=== PATIENT | female | born 1990 | race Caucasian/White ===

== ENCOUNTER → 2018-03-13 | Outpatient (CLI) | payer OTHER | LOC: FIMAGING 13:12 | PROVIDERS: ATTEND Advanced Practice Midwife | DX: Z34.82 Encounter for supervision of other normal pregnancy, second trimester (principal); G93.0 Cerebral cysts; Z3A.19 19 weeks gestation of pregnancy ==

== ENCOUNTER 2018-07-24 08:03 | Day surgery (SDC) | payer OTHER ==
--- NOTE | 2018-07-20 15:51 | GHP ---
[f rep st] PREOP HISTORY AND PHYSICAL DATE OF ADMISSION: 07/24/2018 PLANNED PROCEDURE: External cephalic version. INDICATIONS: Patient is a 28-year-old 1, para 0, who will be _ weeks gestation on 07/24/2018. Her estimated date of confinement is 2018 by last menstrual period consistent with a first trimester ultrasound. Patient has been receiving care with the [facility]. She has been recently found to be in a breech presentation and presented on 2018, for consultation for options. Patient was scanned and her fluid appeared to be adequate with an amniotic fluid index of 15, and the baby was in the transverse presentation with spine down. Management options were reviewed with the patient, including continued alternative therapies with chiropractic and moxibustion, as well as external cephalic version versus proceeding with a primary low transverse section at 39 weeks or if in labor. All options , risks, and benefits were reviewed extensively with the patient. Patient is electing to proceed with an external cephalic version, which will be done on . Patient was instructed to arrive with nothing to eat after midnight and some clear liquids until 2 hours before the procedure. PAST MEDICAL HISTORY: Patient has a history of possible migraine headaches. Patient has a history of anxiety and depression, mood has been stable now. MEDICATIONS: vitamins, fish oil, DHEA, calcium. SURGICAL HISTORY: None. ALLERGIES: No known drug allergies. SOCIAL HISTORY: Patient is . She denies tobacco, alcohol, or drug use. FAMILY MEDICAL HISTORY: Noncontributory. MUNICIPAL ENGINEER HISTORY: She is a 1, para 0. Current has been uncomplicated. She declined genetic testing, testing. She did have her anatomy ultrasound with the Maternal Medicine specialist. Growth was normal. Placenta is anterior without previa. There was a marginal cord insertion and bilateral small choroid plexus cyst. Remainder of anatomy was unremarkable. Estimated weight was 21st percentile. LABS: Blood type B positive, antibody screen negative. Rubella immune. GBS negative. HBsAg negative. HIV negative. Her 50 g glucose was 65. She declined genetic testing, testing. ASSESSMENT AND PLAN: A 28-year-old, 1, para 0 at weeks gestation whose baby is in the transverse presentation. She will undergo an external cephalic version on Tuesday. Labor precautions and kick counts were reviewed with the patient. The patient will sign consent day of surgery. /[id number]/MODL MTDD
[2018-07-24] MEDS ORDERED: TERBUTALINE SULFATE 1 MG/ML VIAL IV ONE (08:07)
[2018-07-24] MEDS ORDERED: OLIVE OIL 118 ML BTL MISC ONE (08:07)
--- NOTE | 2018-07-24 08:13 | SOAPPROG ---
SOAP Progress Note Assessment/Plan: Assessment: 28 year old with full term for version Plan: Stand by anesthesia. Spinal verses GA as necessary if CS needed 07/24/18 08:14 Subjective: No complaints. Here for version Objective: NPO to solids > 8 hours. NPO to clears 1 hour. Class 1 airway. Lungs CTA, Heart RRR - Time Spent With Patient Time Spent With Patient: 10 minutes - Pending Discharge Pending Discharge Within 24 Hours: Yes Pending Discharge Date: 07/25/18 Pending Discharge Time: 11:00 Physical Exam - Physical Exam General Appearance: alert Respiratory: lungs clear Cardiac/Chest: regular rate, rhythm Neuro/Psych: alert
[2018-07-24 08:16] LABS: PLATELET COUNT 184 10^3/uL (150-400)
--- NOTE | 2018-07-24 08:19 | PDANEPAE ---
ANE History of Present Illness 28 year old for version ANE Past Medical History Past Medical History: Healthy ANE Review of Systems Review of systems is: negative Review of Systems: ANE Patient History - Allergies Allergies/Adverse Reactions: No Known Allergies Allergy (Unverified 07/24/18 08:05) - Home Medications Home medications: home medication list seen and reviewed - NPO status NPO Since - Liquids (Time): 01:00 - Anes Hx Anes Hx: no prior problems - Smoking Hx Smoking Status: Never smoked ANE Labs/Vital Signs - Labs Result Diagrams: 07/24/18 08:07 - Vital Signs Height: 170.18 cm Weight: 88.451 kg ANE Physical Exam - Airway Neck exam: FROM Mallampati Score: Class 1 Mouth exam: normal dental/mouth exam - Pulmonary Pulmonary: no respiratory distress, clear to auscultation - Cardiovascular Cardiovascular: regular rate and rhythym - ASA Status ASA Status: II ANE Anesthesia Plan Anesthesia Plan: general endotracheal anesthesia, spinal (Standby anesthresia as indicated at time of need)
[2018-07-24 08:53] VITALS: BP 114/73
--- NOTE | 2018-07-24 11:55 | GOP ---
[f rep st] OPERATIVE REPORT DATE OF OPERATION: 07/24/2018 SURGEON: Hannah Benavides DO PREOPERATIVE DIAGNOSIS: POSTOPERATIVE DIAGNOSIS: PROCEDURE PERFORMED: External cephalic version at 38 and 1/7 weeks' gestation. FINDINGS: DESCRIPTION OF PROCEDURE: Patient is a 28-year-old, 1, para 0, who is 38 and 1/7 weeks' gest ation. She has been receiving care at the [facility]. She presented for consu ltation last week for an external cephalic version because of baby to be in the transverse presentati on. Risks and benefits were reviewed with the patient and patient was brought in. She was n.p.o., e xcept for fluids for 2 hours ago. Baby was scanned and found to be in the transverse presentation. heart tracing was category 1 and there is adequate fluid. An IV was started. Patient was give n intravenous terbutaline and status remained reassuring. With Vilma Stoll, the craniologist was in a ssistance, we did a forward roll and the baby was then in the cephalic presentation. status re mained reassuring. She had a reactive nonstress test following the procedure. We did an ultrasound afterwards to check fluid. BARNEY was 14. remained in the vertex presentation. Labor precautio ns and kick counts were reviewed with the patient and patient was discharged to home. /[id number]/MODL
== END 2018-07-24 11:07 | disposition home or self-care (01) ==
LOC: FOBOP 08:03
PROVIDERS: ATTEND Obstetrics & Gynecology
PROC: 10S0XZZ Reposition Products of Conception, External Approach (ICD-10-PCS; principal; 2018-07-24)
DX: O32.1XX0 Maternal care for breech presentation, not applicable or unspecified (principal); Z3A.38 38 weeks gestation of pregnancy
CPT/HCPCS: J3105

== ENCOUNTER 2018-08-07 23:48 | Inpatient (IN) | payer OTHER ==
[2018-08-08] MEDS ORDERED: LIDOCAINE 1% 300 MG/30 ML SDV SC PRN (00:06)
[2018-08-08] MEDS ORDERED: AMMONIA AROMATIC 1 EACH AMP IH PRN (00:06)
[2018-08-08] MEDS ORDERED: EPSOM SALT 454 GM TP PRN (00:06)
[2018-08-08] MEDS ORDERED: OLIVE OIL 118 ML BTL MISC PRN (00:06)
[2018-08-08] MEDS ORDERED: LR 1,000 ML IV PRN (00:06)
[2018-08-08] MEDS ORDERED: TERBUTALINE SULFATE 1 MG/ML VIAL IV PRN (00:06)
[2018-08-08] MEDS ORDERED: OXYTOCIN/RINGERS LACTATE 1,000 ML IV PRN (00:06)
[2018-08-08] MEDS ORDERED: MISOPROSTOL 200 MCG TAB PO PRN (00:06)
[2018-08-08] MEDS ORDERED: IBUPROFEN 600 MG TAB PO PRN (00:06)
--- NOTE | 2018-08-08 00:07 | PDGENHP ---
History and Physical History and Physical: Care: [facility] HPI: Patient is a 28 yo with IUP@ weeks that presents to L&D with complaints of contractions since 0700, worse since 1400. She reports LOF @ 2044; denies any VB. She reports +FM. EDC: 08/06/18 which is based on LMP: 10/30/17 which is known and consistent with Ultrasound in first trimester. Her is complicated by: marginal cord insertion, DRIER Review of Systems: Constitutional: Denies any fever, chills, or fatigue HEENT: denies any visual changes, difficulty swallowing, hearing loss Cardiovascular: Denies any chest pain, palpitations, leg swelling Respiratory: denies any cough, wheezing, or shortness of breathe GI: Denies any nausea, vomiting, diarrhea, constipation : denies any dysuria, urgency, frequency, vaginal bleeding Musculoskeletal: denies any muscle or bone pain Skin: denies any rashes Neuro: denies any headache, seizures, lightheadedness, dizziness, or loss of consciousness Psychiatric: denies any depression, anxiety, or SI/HI thoughts HISTORY: Previous OB history: G1 Past medical history: noncontributory Past surgical history: oral surgery Social: Denies any alcohol, tobacco, or drug use. Partner- Larry Family history: Not relevant Medications: PNV, fish oil, Calcium, vitamin D Allergies (list reaction): NKDA LABS: Rh: A+ ABS: Neg Rubella: Immune HbsAg: NR HIV: NR VDRL: NR 1hr: 65 GC: Neg Chlamydia: Neg Pap: Normal GBS: negative PHYSICAL EXAM: Constitutional: WN, A&Ox3 HEENT: normocephalic atraumatic, supple Skin: Warm, dry, intact Heart: RRR, no murmur Chest: CTA-B Abdomen: Soft, nontender, gravid SVE:deferred on admission (/-1, per CNM at [facility]) Extremities: trace edema, negative homans sign Neuro: grossly normal Psych: normal affect assessment: FHT baseline 140 +accels, no decels, moderate variability Contractions: toco q 4-5 Assessment: * 28yo with IUP@ 40-2wks * early labor * GBS Negative * cat 1 FHR tracing Plan: * admit to L&D * MILES per pt request * anticipate Today's visit was approximately 30 min, of which >50% of visit 20 min, was spent face to face with pt on direct counseling/coordination of care.
[2018-08-08 00:35] LABS: PLATELET COUNT 216 10^3/uL (150-400)
[2018-08-08] MEDS ORDERED: AMMONIA AROMATIC 1 EACH AMP IH ONE (00:36)
[2018-08-08] MEDS ORDERED: LIDOCAINE 1% 300 MG/30 ML SDV ONE (00:36)
[2018-08-08] MEDS ORDERED: TERBUTALINE SULFATE 1 MG/ML VIAL ONE (00:36)
[2018-08-08] MEDS ORDERED: OLIVE OIL 118 ML BTL MISC ONE (00:36)
[2018-08-08] MEDS ORDERED: MISOPROSTOL 200 MCG TAB ONE (00:37)
[2018-08-08] MEDS ORDERED: OXYTOCIN 10 UNIT/ML VIAL ONE (00:37)
[2018-08-08] MEDS ORDERED: fentaNYL 2MCG/ML/BUP 0.1% RTU 100 ML BAG EP ONE (00:56)
[2018-08-08] MEDS ORDERED: PHENYLEPHRINE HCL 100 MCG/ML SYR ONE (01:34)
[2018-08-08] MEDS ORDERED: PHENYLEPHRINE HCL 100 MCG/ML SYR IVP PRN (01:40)
[2018-08-08] MEDS ORDERED: NALOXONE HCL 0.4 MG/ML INJ IVP PRN (01:40)
[2018-08-08] MEDS ORDERED: ONDANSETRON 4 MG/2 ML VIAL IVP PRN (01:40)
--- NOTE | 2018-08-08 01:48 | PREANESOB ---
Obstetric Pre-Anesthesia Info - General Info Proposed Procedure: vaginal delivery NPO Start Time: 22:00 : 1 Para: 0 LILIA: 08/06/18 - Info Status: Full Term Monitors: External FHR Pattern: Reassuring - Labor Status Cervical Dilation per last OB SVE: 5 Rupture of Membranes Date: 08/07/18 Rupture of Membranes Time: 20:45 Amniotic Fluid Color: Clear Indications for Labor Analgesia: Pain Control Labor Epidural: Proposed Anesthesia ROS: Pt reports back pain and GERD "just the usual" during . H/o situational depression, RUSSO 2/mo, joint swelling/inflammation Allergies/Adverse Reactions: Allergy/AdvReac Type Severity Reaction Status Date / Time No Known Allergies Allergy Verified 08/08/18 00:04 Home Medications: Medication Instructions Recorded Fish Oil 1,200 mg Softgel 07/24/18 07/24/18 Vitamin D3 07/24/18 Visit Medications: Generic Name Dose Route Start Last Admin Trade Name Freq PRN Reason Stop Dose Admin Ammonia (Aromatic Spirit) 1 each 08/08/18 00:06 Ammonia Aromatic IH 08/18/18 00:05 ONCE PRN Fainting Diphenhydramine HCl 25 - 50 mg 08/08/18 01:40 Benadryl Injection IVP 02/04/19 01:39 Q6HRS PRN Itching Lactated Ringer's 1,000 mls @ 0 mls/hr 08/08/18 00:06 Lr IV 08/09/18 00:05 PRN PRN SEE PROTOCOL CONDITIONS Protocol Per Protocol Oxytocin/Lactated Ringer's 1,000 mls @ 999 mls/hr 08/08/18 00:06 Pitocin 20 Units/Lr (Premix) IV PRN PRN Post bleeding Fentanyl/Bupivacaine HCl 100 mls @ 0 mls/hr 08/08/18 02:00 Fentanyl/Bupivacaine/Ns 2 Mcg/Ml 0.1% (Premix EP 08/18/18 01:59 CONT RENATA Protocol As Directed Lactated Ringer's 500 mls @ 0 mls/hr 08/08/18 02:00 Lr IV 02/04/19 01:59 CONT RENATA As Directed Ibuprofen 600 mg 08/08/18 00:06 Motrin PO ONCE PRN post , pain Lidocaine HCl 300 mg 08/08/18 00:06 Lidocaine Hcl 1% SC 02/04/19 00:05 ONCE PRN episiotomy Magnesium Sulfate 454 gm 08/08/18 00:06 Epsom Salt TP 02/04/19 00:05 Q1H PRN perineal discomfort Misoprostol 800 - 1,000 mcg 08/08/18 00:06 Cytotec PO 02/04/19 00:05 ONCE PRN Vaginal Atony/Bleeding Naloxone HCl 0.4 mg 08/08/18 01:40 Narcan IVP 02/04/19 01:39 PRN PRN Respiratory depression [place] Oil 118 ml 08/08/18 00:06 Sweet Oil MISC 02/04/19 00:05 ONCE PRN perineal massage Ondansetron HCl 4 mg 08/08/18 01:40 Zofran IVP 08/09/18 01:39 Q4HRS PRN Nausea/Vomiting, Can't Take PO Phenylephrine HCl 100 mcg 08/08/18 01:40 Neosynephrine IVP 02/04/19 01:39 .Q2M PRN Hypotension Terbutaline Sulfate 0.25 mg 08/08/18 00:06 Brethine IV 02/04/19 00:05 ONCE PRN Tachysystole Discontinued Medications Generic Name Dose Route Start Last Admin Trade Name Freq PRN Reason Stop Dose Admin Ammonia (Aromatic Spirit) Confirm 08/08/18 00:36 Ammonia Aromatic Administered 08/08/18 00:37 Dose 1 each IH .STK-MED ONE Fentanyl/Bupivacaine HCl Confirm 08/08/18 00:56 Fentanyl/Bupivacaine/Ns 2 Mcg/Ml 0.1% (Premix Administered 08/08/18 00:57 Dose 100 ml EP .STK-MED ONE Lidocaine HCl Confirm 08/08/18 00:36 Lidocaine Hcl 1% Administered 08/08/18 00:37 Dose 300 mg .ROUTE .STK-MED ONE Misoprostol Confirm 08/08/18 00:37 Cytotec Administered 08/08/18 00:38 Dose 1,000 mcg .ROUTE .STK-MED ONE [place] Oil Confirm 08/08/18 00:36 Sweet Oil Administered 08/08/18 00:37 Dose 118 ml MISC .STK-MED ONE Oxytocin Confirm 08/08/18 00:37 Pitocin Administered 08/08/18 00:38 Dose 40 unit .ROUTE .STK-MED ONE Phenylephrine HCl Confirm 08/08/18 01:34 Neosynephrine Administered 08/08/18 01:35 Dose 1,000 mcg .ROUTE .STK-MED ONE Terbutaline Sulfate Confirm 08/08/18 00:36 Brethine Administered 08/08/18 00:37 Dose 1 mg .ROUTE .STK-MED ONE - Anesthesia History Response to Local Anesthetics: Normal Anesthesia & Operative History: No Prior Problems (h/o wisdom teeth extraction) Family Anesthesia History: Negative - Vital Signs Latest Vital Signs (Nursing): See recreation instructor for VS - Focused Exam Mallampati Score: Class 2 Pulmonary: clear to auscultation Cardiovascular: regular rate and rhythym Labs: 08/08/18 00:08 Patient ABO/Rh A POSITIVE 08/08/18 00:08 - Plan Anesthetic Plan: MAMADOU Consent Signed and on Chart: Yes Urgent/Emergent Case: Melina lee completed preop but documented later for safe timely pt care
[2018-08-08] MEDS ORDERED: fentaNYL 2MCG/ML/BUP 0.1% RTU 100 ML EP SCH (02:00)
[2018-08-08] MEDS ORDERED: LR 500 ML IV SCH (02:00)
--- NOTE | 2018-08-08 02:36 | OBPROG ---
Labor Progress Note Assessment/Plan: Assessment: 28yo with IUP@ 40-2wks Early labor SROM @ 2045 GBS Negative Cat 1FHR Tracing MILES in place Plan: cont position changes q 30min pitocin augmentation if MVU's <180 reassess @ 0600/PRN Subjective/Intrapartum Course: 08/08/18 02:34 Pt comfortable with MILES at this time. pt denies any pain. Agreeable to IUPC placement and pitocin augmentation PRN. FOB at BS and supportive. Objective: 08/08/18 00:08 Patient ABO/Rh A POSITIVE 08/08/18 00:08 - SVE Dilation (cm): 4 Effacement (%): 75 Station: -2 Membranes: SROM Amniotic Fluid Color: Clear - Contraction Pattern Assessment Current Contraction Pattern: Regular - Procedures Non-surgical Procedures: IUPC Oxytocin Orders Assessment - Pre-Induction/Augmentation Assessment Presentation: Vertex Gestational Age Determined By: Ultrasound, Last Menstral Period Membrane Status: Ruptured Current Contraction Pattern: Regular - Wood's Score Dilation: 3-4cm Effacement: 60-70 Station: -2 Cervix: Soft Cervix Position: Anterior Wood Score Total: 9 ICD10 Worksheet Patient Problems: Problems Problem Status Onset Indication for care in labor or delivery Acute - ICD10 Problem Qualifiers (1) Indication for care in labor or delivery
[2018-08-08] MEDS ORDERED: HYDROCORTISONE 0.5% CREAM TP PRN (06:30)
[2018-08-08] MEDS ORDERED: SIMETHICONE 80 MG TAB CHEW PO PRN (06:30)
--- NOTE | 2018-08-08 06:34 | OBDEL ---
Info Type: Vaginal Presentation at Delivery: Vertex L&D Analgesia/Anesthesia Type: Epidural GBS+: No Intrapartum Medications: Discontinued Medications Generic Name Dose Route Start Last Admin Trade Name yTrese PRN Reason Stop Dose Admin Ibuprofen 600 mg 08/08/18 00:06 08/08/18 06:23 Motrin PO 600 mg ONCE PRN Administration post , pain - Hospital Course Intrapartum: 08/08/18 02:34 Pt comfortable with MILES at this time. pt denies any pain. Agreeable to IUPC placement and pitocin augmentation PRN. FOB at BS and supportive. Indications for Delivery: Spontaneous Labor, SROM Vaginal Delivery - Delivery Provider Delivery Physician/CNM: Mary Cooper - Labor and Delivery Onset of Contractions Date: 08/07/18 Onset of Contractions Time: 21:30 Onset of Contractions Type: Spontaneous Rupture of Membranes Date: 08/07/18 Rupture of Membranes Time: 20:45 Rupture of Membranes Type: Spontaneous Amniotic Fluid Color: Clear Dilation Complete Date: 08/08/18 Dilation Complete Time: 04:18 Placenta Delivery Date: 08/08/18 Placenta Delivery Time: 06:07 Total Hours of Labor: 8 Non-surgical Procedures: IUPC Vaginal Sponge Count Correct: Yes Vaginal Needle Count Correct: Yes Vaginal Sweep Performed: Yes EBL: 200 Delivery Events: Nuchal Cord Delivery Comment: baby delivered without difficulty. Spontaneous cry, baby to mothers chest. [place] Data LILIA: 08/06/18 Gestational Age: 40 week(s) and 2 day(s) Pete Delivery Date: 08/08/18 Delivery Time: 06:01 Sex of Infant: Male Score (1 Min): 8 Score (5 Min): 9 ICD10 Worksheet Patient Problems: Problems Problem Status Onset Indication for care in labor or delivery Acute - ICD10 Problem Qualifiers (1) Indication for care in labor or delivery
[2018-08-08] MEDS: IBUPROFEN 600 MG TAB PO PRN ×2 (14:02→20:02)
[2018-08-08] MEDS: ACETAMINOPHEN 325 MG TAB PO PRN ×2 (14:03→20:03)
[2018-08-08] MEDS: DOCUSATE SODIUM 100 MG CAP PO PRN ×2 (14:03→20:03)
--- NOTE | 2018-08-08 17:56 | POSTANESTH ---
Post Anesthetic Evaluation Cardiovascular Status: Normal, Stable, Similar to Pre-Op Cond Respiratory Status: Normal, Stable, Similar to Pre-op Cond. Level of Consciousness/Mental Status: Can Participate in Eval, Alert and Oriented Pain Control: Adequate, Prn Tx Ordered Nausea/Vomiting Control: Adequate, Prn Tx Ordered Complications Possibly Related to Anesthesia: None Noted Notes: Pt seen and examined. Back site c/d/i, no e/e/e. Rates pain control as excellent. Able to ambulate. MILES has resolved completely, no apparent adverse effects.
[2018-08-09 08:58] VITALS: BP 109/68
[2018-08-09] MEDS: DOCUSATE SODIUM 100 MG CAP PO PRN (09:46)
[2018-08-09] MEDS: ACETAMINOPHEN 325 MG TAB PO PRN (09:46)
[2018-08-09] MEDS: IBUPROFEN 600 MG TAB PO PRN (09:46)
--- NOTE | 2018-08-09 09:51 | OBGCSDC ---
General Delivery Information - General Info : 1 Para: 1 Abortions: 0 Type: Vaginal L&D Analgesia/Anesthesia Type: Epidural Admission Date: 08/07/18 Labs: Patient ABO/Rh A POSITIVE 08/08/18 00:08 Hct 39.8 % (38.0-47.0) 08/08/18 00:08 Temp Pulse Resp BP Pulse Ox 08/09/18 08:52 36.4 C 90 14 109/68 97 08/08/18 20:00 36.4 C 92 17 110/66 99 - Hospital Course Intrapartum: 08/08/18 02:34 Pt comfortable with MILES at this time. pt denies any pain. Agreeable to IUPC placement and pitocin augmentation PRN. FOB at BS and supportive. : 08/09/18 09:49 doing well. c/o pain near epidural site. taking ibuprofen, which is helping. voiding without difficulty. Plan d/c home today. Vaginal - Delivery Provider Delivery Physician/CNM: aMry Cooper - Diagnosis Labor: Spontaneous Rupture of Membranes Type: Spontaneous Amniotic Fluid Color: Clear Delivery Events: Nuchal Cord - Procedures Non-surgical Procedures: IUPC - Delivery Non-surgical Procedures: IUPC EBL: 200 Data LILIA: 08/06/18 Gestational Age: 40 week(s) and 3 day(s) Pete Delivery Date: 08/08/18 Delivery Time: 06:01 Sex of Infant: Male [place] Weight (gm): 3120 g Score (1 Min): 8 Score (5 Min): 9 Discharge Information - Discharge Information Condition: Good Instruction/Follow Up: One Week (with center)
== END 2018-08-09 15:30 | disposition home or self-care (01) | DRG 807 ==
LOC: FLD 23:48 → FOB 08-08 09:39
PROVIDERS: ADMIT Advanced Practice Midwife; ATTEND Advanced Practice Midwife
PROC: 4A1J7BZ Monitoring of Products of Conception, Nervous Pressure, Via Natural or Artificial Opening (ICD-10-PCS; principal; 2018-08-08)
PROC: 10E0XZZ Delivery of Products of Conception, External Approach (ICD-10-PCS; principal; 2018-08-08)
DX: O43.123 Velamentous insertion of umbilical cord, third trimester (principal); O48.0 Post-term pregnancy; O69.81X0 Labor and delivery complicated by cord around neck, without compression, not applicable or unspecified; Z37.0 Single live birth; Z3A.40 40 weeks gestation of pregnancy
CPT/HCPCS: J2370; J2590; J3105